=== PATIENT | male | born 1980 | race Caucasian/White ===

== ENCOUNTER 2019-10-26 06:02 | Outpatient (CLI) | payer BC, OTHER ==
[2019-10-26 10:53] LABS: Hemoglobin 15.7 g/dL (14.0-18.0); Mean Corpuscular HGB CONC 33.5 g/dL (32.0-36.0); Mean Corpuscular Hemoglobin 32.2 pg (27.0-31.0); Mean Corpuscular Volume 96.1 fL (78.0-98.0); Mean Platelet Volume 9.6 fL (7.4-10.4); Platelet Count 129 thou/uL (130-400); Red Blood Cell (RBC) Count 4.88 mill/uL (4.70-6.10)
[2019-10-26 11:01] LABS: Prothrombin Time 13.3 sec (12.0-14.7)
[2019-10-26 11:10] LABS: Anion Gap 17 mmol/L (10-20); BUN (Urea Nitrogen) 12 mg/dL (8.9-20.6); Calc. Creatinine Clearance 0 mL/min (70-130); Carbon Dioxide 22 mmol/L (22-29); Chloride 106 mmol/L (98-107); Estimated GFR-MDRD 75; Glucose 73 mg/dL (70-105); Potassium 4.5 mmol/L (3.5-5.1); Sodium 140 mmol/L (136-145)
[2019-10-26 11:39] LABS: PTT 22.4 sec (22.9-36.1)
--- NOTE | 2019-10-26 14:42 | EKG ---
Test Reason : Blood Pressure : / mmHG Vent. Rate : 103 BPM Atrial Rate : 103 BPM P-R Int : 134 ms QRS Dur : 082 ms QT Int : 332 ms P-R-T Axes : 034 020 039 degrees QTc Int : 434 ms Sinus tachycardia Otherwise normal ECG Confirmed by MALACHI MONROY M.D. ([id number]) on 10/26/2019 2:42:10 PM Referred By: SHRUTHI Confirmed By:MALACHI MONROY M.D.
[2019-10-26 16:52] LABS: SARS-CoV-2 MS2 Positive; SARS-CoV-2 N Gene Negative; SARS-CoV-2 S Gene Negative; SARS-CoV-2 by NAA Not Detected (NotDetected); SARS-CoV-2 orf1ab Negative
== END 2019-10-26 06:03 | disposition home or self-care (01) ==
LOC: LABBT 06:02
PROVIDERS: ATTEND Surgery
DX: Z01.818 Encounter for other preprocedural examination (principal); Z20.828 Contact with and (suspected) exposure to other viral communicable diseases; M51.16 Intervertebral disc disorders with radiculopathy, lumbar region
CPT/HCPCS: 80048; 85027; 85610; 85730; 87635; 93005; 93010; U0003

== ENCOUNTER 2019-10-29 09:41 | Day surgery (SDC) | payer BC ==
[2019-10-27 10:11] VITALS: BMI 34.4
[2019-10-29] MEDS ORDERED: PROPOFOL 200 MG/20 ML VIAL ONE (10:03)
[2019-10-29] MEDS ORDERED: Ketorolac Tromethamine 30 MG/ML VIAL ONE (10:03)
[2019-10-29] MEDS ORDERED: Lidocaine 1% PF 5 ML VIAL ONE (10:03)
[2019-10-29] MEDS ORDERED: Ondansetron PF 4 MG/2 ML Vial ONE (10:03)
[2019-10-29] MEDS ORDERED: Dexamethasone 20 MG/5 ML VIAL ONE (10:03)
[2019-10-29] MEDS ORDERED: Rocuronium Bromide 10 MG/ML (10ML VIAL) ONE (10:03)
[2019-10-29] MEDS ORDERED: Metoclopramide HCl 10 MG/2 ML VIAL ONE (10:03)
[2019-10-29] MEDS ORDERED: Thrombin 5000 UNITS/5 ML VIAL ONE (10:08)
[2019-10-29] MEDS ORDERED: Midazolam HCl 2 mg/2 ml Vial ONE (10:21)
[2019-10-29] MEDS ORDERED: Famotidine/PF 20 mg/2ml Vial ONE (10:29)
[2019-10-29] MEDS ORDERED: Promethazine HCl 25 MG/ML VIAL ONE (10:29)
[2019-10-29] MEDS ORDERED: Scopolamine 1.5 mg/72 hour Patch ONE (10:29)
[2019-10-29] MEDS ORDERED: Fentanyl 250 MCG/5 ML VIAL ONE (10:34)
[2019-10-29] MEDS ORDERED: SUGAMMADEX SODIUM 200 MG/2 ML VIAL ONE (13:15)
[2019-10-29] MEDS ORDERED: Ondansetron HCl/PF 4 MG/2 ML Vial IVP PRN (13:23)
[2019-10-29] MEDS ORDERED: Promethazine HCl 25 MG/ML VIAL IM PRN (13:23)
[2019-10-29] MEDS ORDERED: PACU-Morphine 4MG/ML VIAL SLOW IVP PRN (13:23)
[2019-10-29] MEDS ORDERED: Morphine Sulfate 2 MG/ML SYRINGE SLOW IVP PRN (13:23)
[2019-10-29] MEDS ORDERED: HYDROmorphone 2 MG/ML VIAL SLOW IVP PRN (13:23)
[2019-10-29] MEDS ORDERED: Promethazine HCl 25 MG/ML VIAL SLOW IVP PRN (13:23)
[2019-10-29] MEDS ORDERED: Mag-Al 1200 mg/1200 mg/30 ML UDCUP PO PRN (13:28)
[2019-10-29] MEDS ORDERED: Fleet Enema 133 ML BOT PR PRN (13:28)
[2019-10-29] MEDS ORDERED: diphenhydrAMINE 25 MG CAP PO PRN (13:28)
[2019-10-29] MEDS ORDERED: Bisacodyl 10 MG SUPP PR PRN (13:28)
[2019-10-29] MEDS ORDERED: Acetaminophen 325 MG TAB PO PRN (13:28)
[2019-10-29] MEDS ORDERED: Milk Of Magnesia 30 ML UDCUP PO PRN (13:28)
[2019-10-29] MEDS ORDERED: Cyclobenzaprine 10 MG TAB PO PRN (13:34)
[2019-10-29] MEDS ORDERED: Fentanyl 100 MCG/2 ML VIAL ONE ×2 (14:09→14:40)
[2019-10-29] MEDS: traMADol HCl 50 MG TAB PO PRN (17:24)
[2019-10-29] MEDS: Sodium Chloride 0.9% 1,000 ML IV SCH (17:24)
[2019-10-29] MEDS: CEFAZOLIN 2 GM in Premix Bag 1 BAG IVPB SCH (17:24)
[2019-10-29] MEDS: HYDROcodone/Acetaminophen 7.5/325 mg Tablet PO PRN ×2 (18:19→22:21)
[2019-10-29] MEDS: Acetaminophen/Codeine 30-300mg Tablet PO PRN (19:53)
[2019-10-29] MEDS: Morphine 2 MG/ML VIAL SLOW IVP PRN ×3 (20:36→23:49)
[2019-10-29] MEDS ORDERED: Zolpidem Tartrate 5 MG TAB PO SCH (21:00)
[2019-10-29] MEDS ORDERED: busPIRone HCl 10 MG TAB PO SCH (21:00)
[2019-10-29] MEDS ORDERED: Gabapentin 300 MG CAP PO SCH (21:00)
[2019-10-29] MEDS ORDERED: Montelukast Sodium 10 mg Tablet PO SCH (21:00)
--- NOTE | 2019-10-29 22:56 | OP ---
DATE OF PROCEDURE: 10/29/2019 TELEGRAPHIC TYPEWRITER INSTALLER: Lauren Gallo PA-C. PREPROCEDURE DIAGNOSES: Low back and right leg pain with L4 nerve root compression with lateral disk extrusion, recurrent paracentral disk extrusion compressing the traversing right L5 nerve root. POSTPROCEDURE DIAGNOSES: Low back and right leg pain with L4 nerve root compression with lateral disk extrusion, recurrent paracentral disk extrusion compressing the traversing right L5 nerve root. PROCEDURE PERFORMED: 1. Revision right L4-L5 hemilaminotomy, foraminotomy and diskectomy. 2. Use of operative microscope for microdissection. 3. Right L4-L5 transfacet diskectomy for decompression of the lateral and far-lateral components of the exiting right L4 nerve root. DESCRIPTION OF PROCEDURE: After informed consent was obtained from the patient, the patient was brought to the OR. Proper patient, pause, and identification were carried out. He was placed under excellent endotracheal anesthesia and positioned prone on the OR table. All appropriate points were padded. We identified the midline lumbar vinh to allow for approach to the L4-L5 dorsal spine. This region was sterilely cleansed, prepared and draped. Proper patient, pause, and identification were carried out. The wound was then opened with a combination of sharp, monopolar, and blunt dissection. The L4-L5 right-sided hemilamina were exposed. Localization film confirmed our area of interest. We then performed right L4-L5 revision hemilaminotomy, foraminotomy, brought the microscope in for diskectomy. We had excellent decompression of the traversing right L5 nerve root. We then turned our attention to transfacet diskectomy and decompression of the exiting right L4 nerve root with removal of disk material in the lateral and far-lateral compartments. Copious irrigation occurred throughout as did maximizing hemostasis. There was no spinal fluid leak. The wound was closed in anatomic layers following sprinkling of vancomycin powder. Job ID: [id number]
[2019-10-30] MEDS: traMADol HCl 50 MG TAB PO PRN ×2 (00:52→11:52)
[2019-10-30] MEDS: CEFAZOLIN 2 GM in Premix Bag 1 BAG IVPB SCH (00:53)
[2019-10-30] MEDS ORDERED: Ketorolac Tromethamine 30 MG/ML VIAL IVP PRN (01:58)
[2019-10-30] MEDS: Morphine 2 MG/ML VIAL SLOW IVP PRN ×3 (02:07→06:33)
[2019-10-30] MEDS: HYDROcodone/Acetaminophen 7.5/325 mg Tablet PO PRN ×2 (03:08→10:52)
[2019-10-30] MEDS: Diazepam 5 MG TAB PO PRN ×2 (03:09→13:53)
[2019-10-30] MEDS: Sodium Chloride 0.9% 1,000 ML IV SCH (04:19)
[2019-10-30] MEDS: Acetaminophen/Codeine 30-300mg Tablet PO PRN (04:31)
[2019-10-30 08:08] VITALS: TEMP 97.8
[2019-10-30] MEDS ORDERED: Dexamethasone 10 MG/ML VIAL SLOW IVP SCH (08:45)
[2019-10-30] MEDS ORDERED: Citalopram 20 MG TAB PO SCH (09:00)
[2019-10-30 12:08] VITALS: BP 122/80
== END 2019-10-30 15:25 | disposition home or self-care (01) ==
LOC: SDC 09:41 → SURG A 16:34 → SDC 10-30 15:25
PROVIDERS: ATTEND Surgery
PROC: 0SB20ZZ Excision of Lumbar Vertebral Disc, Open Approach (ICD-10-PCS; principal; 2019-10-29)
PROC: 01NB0ZZ Release Lumbar Nerve, Open Approach (ICD-10-PCS; principal; 2019-10-29)
DX: M51.16 Intervertebral disc disorders with radiculopathy, lumbar region (principal); M48.061 Spinal stenosis, lumbar region without neurogenic claudication; F32.9 Major depressive disorder, single episode, unspecified; Z79.899 Other long term (current) drug therapy
CPT/HCPCS: 76000; J0690; J1100; J1885; J2250; J2270; J2405; J2550; J2704; J2765; J3010; J3370; J3490; S0028

== ENCOUNTER 2019-11-07 08:59 | Emergency (ER) | payer BC, OTHER ==
[2019-11-07 09:52] LABS: #Basophils 0.1 thou/uL (0.0-0.2); #Eosinphils 0.3 thou/uL (0.0-0.7); #Lymphocytes 2.6 thou/uL (1.20-3.40); #Monocytes 0.5 thou/uL (0.11-0.59); %Basophils 1.2 % (0.0-1.0); %Eosinophils 4.3 % (0.0-10.0); %Lymphocytes 40.6 % (21.0-51.0); %Monocytes 7.1 % (0.0-10.0); %Neutrophils 46.8 % (42.0-75.0); Hemoglobin 14.3 g/dL (14.0-18.0); Mean Corpuscular HGB CONC 34.5 g/dL (32.0-36.0); Mean Corpuscular Hemoglobin 32.9 pg (27.0-31.0); Mean Corpuscular Volume 95.4 fL (78.0-98.0); Mean Platelet Volume 7.6 fL (7.4-10.4); Platelet Count 220 thou/uL (130-400); Red Blood Cell (RBC) Count 4.33 mill/uL (4.70-6.10); White Blood Cell (WBC) Count 6.4 thou/uL (4.8-10.8)
[2019-11-07 10:08] LABS: ALT (SGPT) 73 U/L (8-55); AST (SGOT) 35 U/L (5-34); Albumin 3.9 g/dL (3.5-5.0); Alkaline Phosphatase 78 U/L (40-110); Anion Gap 10 mmol/L (10-20); BUN (Urea Nitrogen) 13 mg/dL (8.9-20.6); Bilirubin, Total 0.5 mg/dL (0.2-1.2); Calc. Creatinine Clearance 0 mL/min (70-130); Calcium 8.7 mg/dL (7.8-10.44); Carbon Dioxide 27 mmol/L (22-29); Chloride 105 mmol/L (98-107); Estimated GFR-MDRD 90; Globulin 2.7 g/dL (2.4-3.5); Glucose 82 mg/dL (70-105); Potassium 3.9 mmol/L (3.5-5.1); Protein, Total 6.6 g/dL (6.0-8.3); Sodium 138 mmol/L (136-145)
[2019-11-07] MEDS ORDERED: Lidocaine 1% w/Epinephrine 1:100K 20 ML VIAL ONE (10:27)
[2019-11-07] MEDS ORDERED: Meclizine HCl 25 MG TAB ONE (10:27)
--- NOTE | 2019-11-07 11:50 | CON ---
DATE OF CONSULTATION: Mr. Fuentes is currently 9 days out from lumbar laminectomy, decompression with Dr. Krishnamurthy, who yesterday began to experience nicole wound drainage that he described as a clearish orange, which sounds to me like serosanguineous drainage, and an image was sent to our nurse, at our clinic, which was shared with me and confirmed a suspicion. He was recommended to start Keflex and apply thick pressure dressings overnight to see if this was a self-limiting process and would resolve on its own. Unfortunately, this morning, he called up to our answering service to let us know that he unfortunately has experienced again a large volume of drainage and it was requested he present to the emergency department at [facility]. Upon presentation, he has a new dressing that is actually dry. There is no obvious drainage even with palpation to the wound area in the site, which is excellent news. I do still think that he is going to be prone to continue and persistent wound drainage if this is not oversewn, and as such, we will do that today. PROCEDURES PERFORMED: Infiltration, wound care, and wound resuture. DESCRIPTION OF PROCEDURE: Mr. Fuentes's incision was identified to the midline lumbar spine. This was prepped with Betadine solution, and allowed an appropriate time to dry. Shavonne-incisional area was infiltrated with 1% lidocaine with epinephrine with a full volume of 10 mL. After an appropriate pause and time-out were taken, 1 Ethilon suture was utilized to close the skin in both superficial and deep layers with a running mattress suture type. The sufficient tension was maintained throughout the course of the suture and this was tied in place. The patient tolerated the procedure well. Blood loss was less than 1 mL. Plan will be to discharge from the emergency department and continue his current Keflex script with planned followup with Lauren Gallo and Dr. Krishnamurthy in our clinic as planned in roughly 1 week. I did encourage him if he would have any additional issues, to please call back and let me know. Otherwise, we will plan to see him in the clinic. Job ID: [id number]
== END 2019-11-07 11:35 | disposition home or self-care (01) ==
LOC: ERS 08:59
DX: G89.18 Other acute postprocedural pain (principal); F41.9 Anxiety disorder, unspecified; F32.9 Major depressive disorder, single episode, unspecified
CPT/HCPCS: 36415; 80053; 85025; 99283

== ENCOUNTER 2019-11-15 13:07 | Emergency (ER) | payer BC ==
[2019-11-15] MEDS ORDERED: Morphine 4 MG/ML VIAL ONE (13:41)
[2019-11-15 14:20] LABS: #Lymphocytes 1.3 thou/uL (1.20-3.40); #Monocytes 0.9 thou/uL (0.11-0.59); #Neutrophils 10.4 thou/uL (1.40-6.50); %Eosinophils 0.1 % (0.0-10.0); %Lymphocytes 10.3 % (21.0-51.0); %Monocytes 6.9 % (0.0-10.0); %Neutrophils 82.7 % (42.0-75.0); Hemoglobin 14.3 g/dL (14.0-18.0); Mean Corpuscular HGB CONC 34.2 g/dL (32.0-36.0); Mean Corpuscular Hemoglobin 32.9 pg (27.0-31.0); Mean Corpuscular Volume 96.2 fL (78.0-98.0); Platelet Count 275 thou/uL (130-400); RBC Distribution Width 12.1 % (11.5-14.5); Red Blood Cell (RBC) Count 4.35 mill/uL (4.70-6.10); White Blood Cell (WBC) Count 12.5 thou/uL (4.8-10.8)
[2019-11-15] MEDS ORDERED: Fentanyl 100 MCG/2 ML VIAL ONE (14:25)
[2019-11-15 14:28] LABS: Bilirubin Negative (Negative); Blood, Urine Negative (Negative); Clarity Clear (Clear); Glucose, Urine (Dipstick) Normal (Negative); Ketone, Urine Negative (Negative); Leukocyte Negative Leu/uL (Negative); Nitrite Negative (Negative); Protein, Urine (Dipstick) Negative (Neg-Trace); Specific Gravity, Urine 1.008 (1.002-1.036); Urobilinogen Normal mg/dL (Less than 2); pH, Urine 6.5 (5.0-9.0)
[2019-11-15 14:42] LABS: ALT (SGPT) 68 U/L (8-55); AST (SGOT) 21 U/L (5-34); Albumin 4.3 g/dL (3.5-5.0); Alkaline Phosphatase 84 U/L (40-110); Anion Gap 14 mmol/L (10-20); BUN (Urea Nitrogen) 17 mg/dL (8.9-20.6); Bilirubin, Total 0.5 mg/dL (0.2-1.2); Calc. Creatinine Clearance 0 mL/min (70-130); Calcium 8.7 mg/dL (7.8-10.44); Carbon Dioxide 26 mmol/L (22-29); Chloride 104 mmol/L (98-107); Estimated GFR-MDRD 80; Globulin 2.7 g/dL (2.4-3.5); Glucose 85 mg/dL (70-105); Potassium 4.1 mmol/L (3.5-5.1); Sodium 140 mmol/L (136-145)
--- NOTE | 2019-11-15 15:20 | ULT ---
TESTICULAR ULTRASOUND: History: Testicular pain x 4 days. FINDINGS: Real-time imaging of the right and left testicles were performed. The right testicle measures 3.4 and the left 3.1 cm in size. No testicular mass. The right and left epididymal regions are unremarkable. Patient reports the pain in the right inferior testicle region near the tail of the epididymis. I d o not appreciate any abnormalities in this region. DOPPLER EVALUATION WITH SPECTRAL ANALYSIS: Normal flow is shown to the testes. IMPRESSION: Essentially unremarkable testicular ultrasound. POS: OFF
[2019-11-15] MEDS ORDERED: Ketorolac Tromethamine 30 MG/ML VIAL ONE (15:25)
[2019-11-15] MEDS ORDERED: HYDROcodone/Acetaminophen 5/325 mg Tablet ONE (15:25)
== END 2019-11-15 16:44 | disposition home or self-care (01) ==
LOC: ERS 13:07
DX: N50.82 Scrotal pain (principal); F41.9 Anxiety disorder, unspecified; F32.9 Major depressive disorder, single episode, unspecified; Z79.899 Other long term (current) drug therapy
CPT/HCPCS: 36415; 76870; 80053; 81003; 83605; 83690; 85025; 93976; 96374; 96375; J1885; J2270; J3010

== ENCOUNTER 2019-11-30 11:27 | Emergency (ER) | payer BC ==
[2019-11-30] MEDS ORDERED: Ondansetron PF 4 MG/2 ML Vial ONE (11:46)
[2019-11-30] MEDS ORDERED: Morphine 4 MG/ML VIAL ONE (11:46)
[2019-11-30 12:02] LABS: #Basophils 0.1 thou/uL (0.0-0.2); #Eosinphils 0.2 thou/uL (0.0-0.7); #Monocytes 0.4 thou/uL (0.11-0.59); #Neutrophils 2.9 thou/uL (1.40-6.50); %Basophils 1.2 % (0.0-1.0); %Eosinophils 4.1 % (0.0-10.0); %Lymphocytes 35.7 % (21.0-51.0); %Monocytes 6.9 % (0.0-10.0); %Neutrophils 52.2 % (42.0-75.0); Hemoglobin 14.6 g/dL (14.0-18.0); Mean Corpuscular HGB CONC 34.3 g/dL (32.0-36.0); Mean Corpuscular Volume 96.1 fL (78.0-98.0); Platelet Count 208 thou/uL (130-400); RBC Distribution Width 12.2 % (11.5-14.5); Red Blood Cell (RBC) Count 4.43 mill/uL (4.70-6.10); White Blood Cell (WBC) Count 5.6 thou/uL (4.8-10.8)
--- NOTE | 2019-11-30 12:53 | MRI ---
MR the lumbar spine without contrast: 11/30/2019 History: Right-sided back pain and hip pain, numbness of right leg COMPARISON: 10/06/2019 TECHNIQUE: Multiplanar multisequence MR images were obtained of lumbar spine without IV contrast FINDINGS: On the basis of 5 lumbar type vertebral bodies, conus medullaris terminates at [id number]-S4 level. Sagittal STIR imaging demonstrates increased signal intensity posterior to the thecal sac at the L4 l evel extending to the right of the L4 spinous process and posteriorly to involve the subcutaneous fat. This fluid collection measures approximately 7.1 cm in AP dimension, up to approximately 2 cm in transverse dimension, and approximately 4.4 cm in craniocaudal dimension. T12-L1:Mild disc space narrowing and mild disc bulge with no significant central canal or neural fora marcy stenosis L1-2:There is disc space narrowing with mild disc bulge and a superimposed small left paracentral dis c protrusion. This leads to a mild degree of left-sided central canal stenosis. No significant neural foraminal stenosis. L2-3:No significant central canal or neural foraminal stenosis. L3-4:Mild disc space narrowing and disc desiccation. Mild left facet hypertrophy. No significant cent ral canal or neural foraminal stenosis. L4-5:There is disc space narrowing and disc desiccation with right lateral degenerative endplate bess ge. There is a central annular tear with a small associated central disc protrusion. The above-described fluid collection at L4-5 extends into the region of the right neural foramen. There i s bilateral facet hypertrophy, right greater than left. There is moderate right neural foraminal stenosis. No significant left neural foraminal stenosis. There is mild central canal stenosis with mo derate right lateral recess stenosis on the basis of above described fluid collection. The patient appears status post facetectomy on the right at L4-5 since the prior exam. L5-S1:There is a small left paracentral annular tear. No significant central canal or neural foramina l stenosis. Image retroperitoneal structures demonstrateno acute findings. Incidental note is made of distention of the urinary bladder. IMPRESSION: Postoperative and degenerative changes within the lumbar spine as detailed above. Most significant fi nding is a nonspecific postoperative fluid collection on the right posteriorly at L4-5 extending into the region of the right neural foramen. This could represent a sterile or infected postoperative fluid collection. There is significant neural foraminal stenosis and lateral recess stenosis on the right at L4-5. Urinary bladder distention.
[2019-11-30] MEDS ORDERED: HYDROmorphone 0.5 MG/0.5 ML SYRINGE ONE (13:07)
[2019-11-30] MEDS ORDERED: Dexamethasone 10 MG/ML VIAL ONE (13:59)
== END 2019-11-30 14:55 | disposition home or self-care (01) ==
LOC: ERS 11:27
DX: M54.16 Radiculopathy, lumbar region (principal); R33.9 Retention of urine, unspecified; F41.9 Anxiety disorder, unspecified; F32.9 Major depressive disorder, single episode, unspecified; J45.909 Unspecified asthma, uncomplicated; M19.90 Unspecified osteoarthritis, unspecified site; Z79.899 Other long term (current) drug therapy
CPT/HCPCS: 36415; 72148; 85025; 96374; 96375; J1100; J1170; J2270; J2405

== ENCOUNTER 2019-12-13 02:30 | Emergency (ER) | payer BC ==
[2019-12-13] MEDS ORDERED: Ondansetron ODT 4 MG TAB ONE (03:05)
[2019-12-13] MEDS ORDERED: Morphine 4 MG/ML VIAL ONE (05:01)
[2019-12-13] MEDS ORDERED: Ondansetron PF 4 MG/2 ML Vial ONE (05:01)
[2019-12-13 05:23] LABS: #Basophils 0.1 thou/uL (0.0-0.2); #Eosinphils 0.1 thou/uL (0.0-0.7); #Lymphocytes 1.6 thou/uL (1.20-3.40); #Neutrophils 13.6 thou/uL (1.40-6.50); %Basophils 0.6 % (0.0-1.0); %Eosinophils 0.4 % (0.0-10.0); %Lymphocytes 9.6 % (21.0-51.0); %Monocytes 5.9 % (0.0-10.0); %Neutrophils 83.5 % (42.0-75.0); Hemoglobin 15.2 g/dL (14.0-18.0); Mean Corpuscular HGB CONC 34.8 g/dL (32.0-36.0); Mean Corpuscular Hemoglobin 33.1 pg (27.0-31.0); Mean Corpuscular Volume 95.1 fL (78.0-98.0); Mean Platelet Volume 7.1 fL (7.4-10.4); Platelet Count 311 thou/uL (130-400); RBC Distribution Width 12.4 % (11.5-14.5); White Blood Cell (WBC) Count 16.2 thou/uL (4.8-10.8)
[2019-12-13 05:45] LABS: ALT (SGPT) 28 U/L (8-55); AST (SGOT) 13 U/L (5-34); Albumin 4.2 g/dL (3.5-5.0); Alkaline Phosphatase 64 U/L (40-110); Anion Gap 12 mmol/L (10-20); BUN (Urea Nitrogen) 19 mg/dL (8.9-20.6); Bilirubin, Total 0.3 mg/dL (0.2-1.2); Calc. Creatinine Clearance 0 mL/min (70-130); Calcium 9.1 mg/dL (7.8-10.44); Carbon Dioxide 27 mmol/L (22-29); Chloride 104 mmol/L (98-107); Estimated GFR-MDRD Greater than 90; Globulin 2.6 g/dL (2.4-3.5); Glucose 90 mg/dL (70-105); Potassium 4.3 mmol/L (3.5-5.1); Protein, Total 6.8 g/dL (6.0-8.3); Sodium 139 mmol/L (136-145)
[2019-12-13] MEDS ORDERED: Fentanyl 100 MCG/2 ML VIAL ONE (06:16)
--- NOTE | 2019-12-13 07:47 | MRI ---
MRI LUMBAR SPINE WITH AND WITHOUT IV CONTRAST: 12/13/19 PROVIDED CLINICAL HISTORY: Back pain. Recent back surgery. COMPARISON: 11/30/2019 FINDINGS: A circumscribed fluid collection posterior to the thecal sac at the L4 level, extending to the right of the L4 spinous process and posteriorly to involve the subcutaneous fat is redemonstrated, similar in size to the prior examination. There is thick, irregular enhancement to the rim of this collection . There is enhancement in the right subarticular and foraminal region at L4-L5. There is no additiona l contrast enhancement identified, other than patchy contrast enhancement within the right paraspinal musculature inferior to the fluid collection. Degenerative and postoperative changes as previously d escribed appear otherwise stable. There is no significant central canal stenosis noted throughout. Th ere is no evidence for significant mass effect upon the thecal sac by this fluid collection. No focal concerning regional marrow signal abnormality is evident. IMPRESSION: Redemonstration of fluid collection posterior to the operative site, demonstrating a thickened, irreg ular rim, suspicious for abscess. POS: LICHA
[2019-12-13] MEDS ORDERED: HYDROcodone/Acetaminophen 10/325 mg Tablet ONE (08:29)
[2019-12-13] MEDS ORDERED: Magnevist 469MG/ML 20 ML VIAL ONE (15:46)
== END 2019-12-13 09:18 | disposition home or self-care (01) ==
LOC: ERS 02:30
DX: A18.01 Tuberculosis of spine (principal); J45.909 Unspecified asthma, uncomplicated; F41.9 Anxiety disorder, unspecified; F32.9 Major depressive disorder, single episode, unspecified; Z79.899 Other long term (current) drug therapy
CPT/HCPCS: 36415; 72158; 80053; 85025; 85652; 86140; 87040; 96374; 96375; A9579; J2270; J2405; J3010; Q0162

== ENCOUNTER 2020-03-14 06:46 | Outpatient (CLI) | payer BC ==
[2020-03-14 11:56] LABS: Anion Gap 12 mmol/L (10-20); BUN (Urea Nitrogen) 13 mg/dL (8.9-20.6); Calc. Creatinine Clearance 0 mL/min (70-130); Carbon Dioxide 27 mmol/L (22-29); Chloride 106 mmol/L (98-107); Glucose 76 mg/dL (70-105); Potassium 4.2 mmol/L (3.5-5.1); Sodium 141 mmol/L (136-145)
[2020-03-14 12:01] LABS: Hemoglobin 14.6 g/dL (14.0-18.0); Mean Corpuscular HGB CONC 34.7 G/DL (32.0-36.0); Mean Corpuscular Hemoglobin 32.2 PG (27.0-33.0); Mean Corpuscular Volume 92.9 fl (80.0-100.0); Platelet Count 231 10x3/uL (130-400); RBC Distribution Width 12.5 % (11.5-14.5); Red Blood Cell (RBC) Count 4.53 10x6/uL (4.40-5.80); White Blood Cell (WBC) Count 7.9 10x3/uL (4.5-11.0)
[2020-03-14 12:22] LABS: PTT 31.3 sec (22.0-33.0); Prothrombin Time 10.7 sec (9.5-12.1)
--- NOTE | 2020-03-14 17:55 | EKG ---
Test Reason : Blood Pressure : / mmHG Vent. Rate : 077 BPM Atrial Rate : 077 BPM P-R Int : 144 ms QRS Dur : 086 ms QT Int : 380 ms P-R-T Axes : 043 030 043 degrees QTc Int : 430 ms Normal sinus rhythm Normal ECG When compared with ECG of 26-OCT-2019 08:57, No significant change was found Confirmed by DR. Cher NIEVES ([id number]) on 03/14/2020 5:55:24 PM Referred By: SHRUTHI Confirmed By:DR. Cher NIEVES
== END 2020-03-14 06:47 | disposition home or self-care (01) ==
LOC: LABBT 06:46
PROVIDERS: ATTEND Surgery
DX: Z01.818 Encounter for other preprocedural examination (principal)
CPT/HCPCS: 80048; 85027; 85610; 85730; 93005; 93010

== ENCOUNTER 2020-03-17 08:28 | Day surgery (SDC) | payer BC ==
[2020-03-14 14:36] VITALS: BMI 35.9
[2020-03-15 05:25] LABS: SARS-CoV-2 PCR by NAA DETECTED (NotDetected)
[2020-03-17] MEDS ORDERED: Dexamethasone 20 MG/5 ML VIAL ONE (09:46)
[2020-03-17] MEDS ORDERED: Ondansetron PF 4 MG/2 ML Vial ONE (09:46)
[2020-03-17] MEDS ORDERED: Metoclopramide HCl 10 MG/2 ML VIAL ONE (09:46)
[2020-03-17] MEDS ORDERED: Glycopyrrolate 0.2 MG/ML 5 ML SYRINGE ONE (09:46)
[2020-03-17] MEDS ORDERED: PROPOFOL 200 MG/20 ML VIAL ONE (09:46)
[2020-03-17] MEDS ORDERED: PHENYLEPHRINE-NS 100 MCG/ML 10 ML SYRINGE ONE (09:46)
[2020-03-17] MEDS ORDERED: Rocuronium Bromide 10 MG/ML (10ML VIAL) ONE (09:46)
[2020-03-17] MEDS ORDERED: Vecuronium 10 MG VIAL ONE (09:46)
[2020-03-17] MEDS ORDERED: Lidocaine 1% PF 5 ML VIAL ONE (09:46)
[2020-03-17] MEDS ORDERED: Thrombin 5000 UNITS/5 ML VIAL ONE (10:14)
[2020-03-17] MEDS ORDERED: Famotidine/PF 20 mg/2ml Vial ONE (10:27)
[2020-03-17] MEDS ORDERED: Fentanyl 250 MCG/5 ML VIAL ONE (10:27)
[2020-03-17] MEDS ORDERED: HYDROcodone/Acetaminophen 7.5/325 mg Tablet PO PRN (10:44)
[2020-03-17] MEDS ORDERED: Acetaminophen/Codeine 30-300mg Tablet PO PRN (10:44)
[2020-03-17] MEDS ORDERED: Acetaminophen 325 MG TAB PO PRN (10:44)
[2020-03-17] MEDS ORDERED: tiZANidine HCl 4 MG TAB PO PRN (10:44)
[2020-03-17] MEDS ORDERED: traMADol HCl 50 MG TAB PO PRN (10:44)
[2020-03-17] MEDS ORDERED: Promethazine HCl 25 MG/ML VIAL IM PRN (13:23)
[2020-03-17] MEDS ORDERED: Ondansetron HCl/PF 4 MG/2 ML Vial IVP PRN (13:23)
[2020-03-17] MEDS ORDERED: Promethazine HCl 25 MG/ML VIAL SLOW IVP PRN (13:23)
[2020-03-17] MEDS ORDERED: Morphine Sulfate 2 MG/ML SYRINGE SLOW IVP PRN (13:23)
[2020-03-17] MEDS ORDERED: PACU-Morphine 4MG/ML VIAL SLOW IVP PRN (13:23)
[2020-03-17] MEDS ORDERED: HYDROmorphone 2 MG/ML VIAL SLOW IVP PRN (13:23)
[2020-03-17] MEDS ORDERED: Fentanyl 100 MCG/2 ML VIAL ONE ×3 (14:49→16:06)
[2020-03-17] MEDS ORDERED: HYDROmorphone 0.5 MG/0.5 ML SYRINGE ONE (15:14)
[2020-03-17] MEDS: CEFAZOLIN 2 GM in Premix Bag 1 BAG IVPB SCH (17:43)
[2020-03-17] MEDS: Sodium Chloride 0.9% 1,000 ML IV SCH (17:43)
[2020-03-17] MEDS: Morphine 2 MG/ML VIAL SLOW IVP PRN (19:42)
[2020-03-17] MEDS: busPIRone HCl 10 MG TAB PO SCH (22:03)
[2020-03-17] MEDS: Gabapentin 300 MG CAP PO SCH (22:04)
[2020-03-17] MEDS: Montelukast Sodium 10 mg Tablet PO SCH (22:04)
[2020-03-17] MEDS: Zolpidem Tartrate 5 MG TAB PO SCH (22:05)
[2020-03-18] MEDS: Morphine 2 MG/ML VIAL SLOW IVP PRN ×2 (01:31→20:29)
[2020-03-18] MEDS: CEFAZOLIN 2 GM in Premix Bag 1 BAG IVPB SCH ×3 (01:33→16:46)
[2020-03-18] MEDS: Sodium Chloride 0.9% 1,000 ML IV SCH ×2 (01:40→16:46)
[2020-03-18] MEDS ORDERED: Morphine 4 MG/ML VIAL SLOW IVP PRN (02:46)
[2020-03-18] MEDS: HYDROcodone/Acetaminophen 10/325 mg Tablet PO PRN ×3 (03:04→12:38)
[2020-03-18] MEDS ORDERED: Diazepam 5 MG TAB PO SCH (08:00)
--- NOTE | 2020-03-18 08:31 | OP ---
DATE OF PROCEDURE: 03/17/2020 LOCATION: OR -12. PREPROCEDURE DIAGNOSIS: Third time disk extrusion recurrence right side at L4-L5 with low back and right greater than left lower extremity pain. POSTPROCEDURE DIAGNOSIS: Third time disk extrusion recurrence right side at L4-L5 with low back and right greater than left lower extremity pain. PROCEDURES PERFORMED: 1. L4-L5 right-sided Geronimo laminectomy with complete facetectomy for decompression of the exiting right L4 and traversing right L5 nerve root with diskectomy. 2. Left-sided interbody diskectomy and fusion with placement of interbody spacer, filled with BMP for interbody arthrodesis with also posterolateral arthrodesis with local bone autograft obtained from same incision, allograft and BMP posterolaterally. 3. Posterior screw donna fixation at L4-L5. DESCRIPTION OF PROCEDURE: After informed consent was obtained from the patient, the patient was brought to the OR. Proper patient, pause, and identification were carried out. He was placed under excellent general endotracheal anesthesia and positioned prone on the OR table. All appropriate points were padded. We identified the prior L4-L5 incision. This region was sterilely cleansed, prepared, and draped. Proper patient, pause, and identification were carried out. The wound was then opened with combination of sharp, monopolar, and blunt dissection. Bilateral L4-L5 revision segments were exposed, and a localization film confirmed area of interest and performed a right L4-L5 Geronimo laminectomy with diskectomy, freeing up of the right L4 and right L5 nerve roots. On the left side at L4-L5, we opened up the disk space and diskectomy as well and did an interbody arthrodesis spacer placement for arthrodesis via PEEK spacer. We then did screw donna fixation bilaterally, we were satisfied with our construct with final tightening as well. Posterolateral arthrodesis was also initiated bilaterally with BMP, local bone autograft, and allograft. The wound was then closed in anatomic layers following meticulous hemostasis and DuraSeal was used over the dura, although no CSF leak, this was for dural protection. The wound was closed in anatomic layers following sprinkling of vancomycin powder. The patient emerged from anesthesia. Job ID: [id number]
[2020-03-18] MEDS: Citalopram 20 MG TAB PO SCH (08:41)
--- NOTE | 2020-03-18 08:43 | PRG ---
DATE OF SERVICE: 03/18/2020 Mr. Fuentes is postoperative day #1 after undergoing an L4-L5 Geronimo laminectomy, left interbody fusion, and bilateral posterolateral instrumented fusion with screws and rods. He reports improvement in his preoperative right hip and leg pain. He experienced quite a bit of lower back pain last night. He reports ambulating without difficulty. He demonstrates good range of motion and full strength throughout his lower extremity myotomes bilaterally. There is sanguinous drainage from the wound. He will remain another day for pain control. He will be switched from tizanidine to valium in attempt to minimize spasms. A pressure dressing has been applied to his wound, and he will be sent home on prophylactic keflex given wound drainage. Job ID: [id number] [facility]
[2020-03-18] MEDS: Lisinopril 5 MG TAB PO SCH (09:36)
[2020-03-18] MEDS: Diazepam 5 MG TAB PO PRN (16:46)
[2020-03-18] MEDS: busPIRone HCl 10 MG TAB PO SCH (20:28)
[2020-03-18] MEDS: Montelukast Sodium 10 mg Tablet PO SCH (20:28)
[2020-03-18] MEDS: Gabapentin 300 MG CAP PO SCH (20:28)
[2020-03-18] MEDS: Zolpidem Tartrate 5 MG TAB PO SCH (20:28)
[2020-03-19] MEDS: Diazepam 5 MG TAB PO PRN (00:19)
[2020-03-19] MEDS: CEFAZOLIN 2 GM in Premix Bag 1 BAG IVPB SCH ×2 (00:19→08:37)
[2020-03-19] MEDS: Morphine 2 MG/ML VIAL SLOW IVP PRN ×3 (00:43→08:39)
[2020-03-19] MEDS: Sodium Chloride 0.9% 1,000 ML IV SCH (04:36)
[2020-03-19] MEDS: Lisinopril 5 MG TAB PO SCH (08:38)
[2020-03-19] MEDS: Citalopram 20 MG TAB PO SCH (08:47)
[2020-03-19] MEDS: HYDROcodone/Acetaminophen 10/325 mg Tablet PO PRN (08:50)
--- NOTE | 2020-03-19 09:40 | DIS ---
DATE OF ADMISSION: 03/17/2020 DATE OF DISCHARGE: 03/19/2020 PROCEDURE: L4-L5 decompression and fusion. DISCHARGE SUMMARY: The patient is a 39-year-old male recently evaluated in Dr. Krishnamurthy's office for progressive back and leg pain. He was found to have significant disk disease at L4-L5. He underwent L4-L5 decompression and fusion on 03/17/2020. Following the procedure, he was transitioned to the Med/Surg floor, where his pain has been well controlled with p.o. medications, he is tolerating regular diet, and he is voiding appropriately. He has been ambulating easily in the hallways. He did have small amount of incisional drainage and this has been managed with dressing changes. I checked the incision on postoperative day #2 and it appears clean and dry at this time. No active drainage noted. There is a scant amount of drainage on the pad from overnight. He is doing well and we feel that it was appropriately he transitioned to home at this time. I have discussed home care and precautions. He will follow up with Dr. Krishnamurthy's team in [address] Krishnamurthy's team sent his postoperative prescriptions to the [facility], these include hydrocodone, tramadol, Valium, and Keflex. Job ID: [id number] [facility]
[2020-03-19 12:09] VITALS: BP 127/85; TEMP 99.6
== END 2020-03-19 14:56 | disposition home or self-care (01) ==
LOC: SDC 08:28 → SJJU 10:44 → SDC 03-19 14:56
PROVIDERS: ATTEND Surgery
PROC: 0ST20ZZ Resection of Lumbar Vertebral Disc, Open Approach (ICD-10-PCS; principal; 2020-03-17)
PROC: 0SG00AJ Fusion of Lumbar Vertebral Joint with Interbody Fusion Device, Posterior Approach, Anterior Column, Open Approach (ICD-10-PCS; principal; 2020-03-17)
DX: M51.16 Intervertebral disc disorders with radiculopathy, lumbar region (principal); M48.062 Spinal stenosis, lumbar region with neurogenic claudication; U07.1 COVID-19; Z79.899 Other long term (current) drug therapy
CPT/HCPCS: 36415; 76000; 86850; 86900; 86901; 87635; C1713; C1768; J0690; J1100; J1170; J2270; J2405; J2704; J2765; J3010; J3370; S0028; U0003; U0005

== ENCOUNTER 2020-05-27 07:49 | Outpatient (CLI) | payer BC | END 2020-05-27 07:50 | disposition home or self-care (01) | LOC: TBSIIMAG 07:49 | PROVIDERS: ATTEND Surgery | DX: M51.16 Intervertebral disc disorders with radiculopathy, lumbar region (principal) | CPT/HCPCS: 72100 ==